=== PATIENT | female | born 1950 | race Caucasian/White ===

== ENCOUNTER 2018-04-30 11:50 | Inpatient (IN) | payer MEDICARE, OTHER ==
--- NOTE | 2018-04-26 13:41 | HP ---
AMENDED REPORT NOW INCLUDES DESIGNATED COSIGNER HISTORY AND PHYSICAL: DATE OF SURGERY: 04/30/18 ATTENDING SURGEON: Dr. Ruano * (DICTATED BY FABIO EDWARD) PROCEDURE: Left total hip arthroplasty. DATE OF OFFICE VISIT: 04/26/18 CHIEF COMPLAINT: Left hip pain. HISTORY OF PRESENT ILLNESS: Ms. Calixto is a 68-year-old female with end-stage osteoarthritis of her left hip. She has failed conservative treatment and elected to proceed with a left total hip arthroplasty, which is scheduled for with Dr. Ruano. PAST MEDICAL HISTORY: 1. Hyperlipidemia. 2. Depression. 3. Rheumatoid fever as a child. PAST SURGICAL HISTORY: Appendectomy. CURRENT MEDICATIONS: 1. Valacyclovir 1 g as needed. 2. Fluoxetine 20 mg daily. 3. Melatonin. 4. L-lysine. 5. Cinnamon. 6. Multivitamin. 7. Calcium. 8. Aleve. 9. Vitamin D3. 10. Aspirin 81 mg. ALLERGIES: BACTRIM. FAMILY HISTORY: Diabetes and coronary artery disease. SOCIAL HISTORY: She is a 68-year-old female. She lives with her . She does not smoke or use drugs. She uses occasional alcohol. REVIEW OF SYSTEMS: A complete 14-point review of systems was reviewed with the patient, it was all negative and noncontributory. She denies history of DVT, PE , hepatitis, HIV or anesthesia problems. PHYSICAL EXAMINATION GENERAL: She is well developed, well nourished, in no acute distress. VITAL SIGNS: She stands 65 inches tall, weighs 150 pounds. Her blood pressure is 138/68, her heart rate is 74. HEENT: Normocephalic, atraumatic. NECK: Supple. No palpable lymph nodes. PULMONARY: Lungs are clear to auscultation bilaterally. CARDIO: Regular rate and rhythm. Strong S1, S2. ABDOMEN: Soft, nontender, nondistended. NEUROLOGICAL: She is alert and oriented x3. MUSCULOSKELETAL: Left lower extremity: The skin is intact. There are no open wounds or abrasions. She walks with an antalgic type gait favoring her left hip. She has decreased internal and external rotation of the left hip. She has 2+ dorsalis pedis pulse and intact sensation. Her lower extremity muscle group strengths are intact at 5/5. ASSESSMENT AND PLAN: Ms. Calixto is a 68-year-old female with end-stage osteoarthritis of the left hip. She has failed conservative treatment and elected to proceed with a left total hip arthroplasty, which is scheduled for with Dr. Ruano. Dr. Ruano discussed the risks and benefits of the surgery at today's visit and all of her questions were answered. She will follow up with Dr. Ruano two weeks after the surgery. FABIO EDWARD [id number]/[facility] #: [id number] MTDD
[~2018-04-30 11:50] MED LIST: Buffered Lidocaine 0.9% SYRIN* 5 ML/SYR SYRINGE INTRADERM ONE; Famotidine IV* 10 MG/ML 2 ML (20 mg) IV ONE
[2018-04-30] MEDS ORDERED: Midazolam* 1 MG/ML 5 ML VIAL (5 MG) ONE (12:16)
[2018-04-30] MEDS ORDERED: fentaNYL* 50 MCG/ML 2 ML VIAL (100 MCG VIAL) ONE (12:16)
[2018-04-30] MEDS ORDERED: Famotidine IV* 10 MG/ML 2 ML (20 mg) ONE (12:30)
[2018-04-30] MEDS ORDERED: ceFAZolin 2 GM PREMIX in ORs 2 GM/50 ML BAG IVPB ONE (12:30)
[2018-04-30] MEDS ORDERED: KETAMINE HCL* 50 MG/ML 10 ML VIAL ONE (14:20)
[2018-04-30] MEDS ORDERED: oxyCODONE TAB* 5 MG TAB PO PRN ×2 (14:52→16:07)
[2018-04-30] MEDS ORDERED: Naloxone* 0.4 MG/ML 1 ML VIAL IV PRN (14:52)
[2018-04-30] MEDS ORDERED: HYDROmorphone INJ1* 1 MG/ML SYRINGE IV PRN (14:52)
[2018-04-30] MEDS ORDERED: DiMENhydriNATE IV* 50 MG/ML VIAL IV PUSH PRN (14:52)
[2018-04-30] MEDS ORDERED: Acetaminophen TAB* 325 MG PO PRN ×2 (14:52→16:07)
[2018-04-30] MEDS ORDERED: Gabapentin CAP(*) 100 MG PO ONE (14:54)
[2018-04-30] MEDS ORDERED: Bupivacaine-MPF SPINAL* 7.5 MG/ML - 2ML AMP ONE (15:08)
[2018-04-30] MEDS ORDERED: DiMENhydriNATE IV* 50 MG/ML VIAL ONE (15:08)
[2018-04-30] MEDS ORDERED: Propofol* 10 MG/ML 20 ML BTL IV PUSH ONE (15:08)
[2018-04-30] MEDS ORDERED: Ondansetron INJ* 2 MG/ML VIAL ONE (15:08)
[2018-04-30] MEDS ORDERED: Ketorolac INJ* 30 MG/ML 1 ML VIAL ONE (15:08)
[2018-04-30] MEDS ORDERED: Dexamethasone IV* 4 MG/ML 1 ML (4 MG) ONE (15:08)
[2018-04-30] MEDS ORDERED: Lidocaine 2% PF * 5 ML VIAL ONE (15:08)
[2018-04-30] MEDS ORDERED: Ondansetron INJ* 2 MG/ML VIAL IV PRN (16:07)
[2018-04-30] MEDS ORDERED: Bisacodyl SUPP* 10 MG SUPP PR PRN (16:07)
[2018-04-30] MEDS ORDERED: diPHENhydraMINE IV* 50 MG/ML 1 ml VIAL (BENADRYL) IV PRN (16:07)
[2018-04-30] MEDS ORDERED: Morphine INJ* 4 MG/ML 1 ML SYRINGE (NEW SYRINGE VERSION) IV PRN (16:07)
[2018-04-30] MEDS ORDERED: Cyclobenzaprine TAB* 10 MG PO PRN (16:07)
[2018-04-30] MEDS ORDERED: Polyethylene Glycol 3350* 17 GM PACKET PO PRN (16:07)
[2018-04-30] MEDS ORDERED: Magnesium Hydroxide LIQ* 30 ML UDC PO PRN (16:07)
--- NOTE | 2018-04-30 16:07 | RAD ---
HISTORY: LEFT TOTAL HIP REPLACEMENT COMPARISONS: April 01, 2018 VIEWS: 1 , single frontal portable intraoperative view of the pelvis during hip arthroplasty FINDINGS: Limited single frontal portable view of the pelvis to hip arthroplasty, at 3:31 PM, demonstrates a left hip arthroplasty with a temporary femoral sizing component. IMPRESSION: LIMITED PORTABLE INTRAOPERATIVE VIEW OF THE HIP DURING ARTHROPLASTY.
[2018-04-30] MEDS ORDERED: Gabapentin CAP(*) 100 MG ONE (16:32)
--- NOTE | 2018-04-30 17:15 | RAD ---
HISTORY: S/p LTHA COMPARISONS: July 01, 2018 VIEWS: 3 , Frontal view of the pelvis with frontal and crosstable lateral views of the left hip FINDINGS: BONE DENSITY: Normal. BONES: The patient is status post left hip arthroplasty. There is no hardware failure or osteolysis. JOINTS: The patient is status post left hip arthroplasty. ALIGNMENT: There is no dislocation. SOFT TISSUES: Unremarkable. OTHER FINDINGS: Degenerative changes are noted of the spine. IMPRESSION: STATUS POST LEFT HIP ARTHROPLASTY
[2018-04-30] MEDS: oxyCODONE/Acetamin 5/325 MG* TAB PO PRN ×2 (18:30→23:11)
[2018-04-30] MEDS ORDERED: Warfarin TAB(*) 6 MG PO ONE (18:30)
[2018-04-30] MEDS: Docusate CAP* 100 MG PO SCH (20:39)
[2018-04-30] MEDS: Magnesium Hydroxide LIQ* 30 ML UDC PO SCH (20:41)
[2018-04-30] MEDS: ceFAZolin 1 GM ADVAN(*) 1 GM in NS 0.9% 50 ML* 50 ML IVPB SCH (23:15)
[2018-05-01] MEDS: oxyCODONE/Acetamin 5/325 MG* TAB PO PRN ×5 (03:53→22:19)
[2018-05-01] MEDS: ceFAZolin 1 GM ADVAN(*) 1 GM in NS 0.9% 50 ML* 50 ML IVPB SCH ×2 (05:29→14:09)
[2018-05-01 06:19] LABS: Hematocrit 28 % (35-47); Hemoglobin 9.4 g/dl (12.0-16.0); Mean Platelet Volume 7.9 um3 (7.4-10.4); Platelet Count 196 10^3/ul (150-450)
[2018-05-01 06:27] LABS: INR 1.05 (0.77-1.02)
[2018-05-01 06:41] LABS: EGFR Non-African American 66.5 (>60)
[2018-05-01] MEDS: Docusate CAP* 100 MG PO SCH ×2 (08:03→22:20)
[2018-05-01] MEDS: Magnesium Hydroxide LIQ* 30 ML UDC PO SCH ×2 (08:03→22:21)
--- NOTE | 2018-05-01 10:56 | PN ---
Progress Note - Progress Note Date of Service: 05/01/18 SOAP: Subjective: POD #1 Left TRACI, doing well. Feels "weak" with walking but pain controlled. Denies CP/SOB, f/c, n/v or calf pain Objective: Vitals: Temp Pulse Resp BP Pulse Ox 97.9 F 65 20 116/49 98 05/01/18 07:25 05/01/18 07:25 05/01/18 10:44 05/01/18 07:25 05/01/18 08:00 Gen: A&Ox3, NAD at rest sitting in chair Left hip: Dressing C/D/I. + f/e at knee, ankles and MTPs. Sensation to light touch intact. DP 2+ Labs: Laboratory Results - last 24 hr 05/01/18 05/01/18 05/01/18 05:45 05:45 05:45 Hgb 9.4 L Hct 28 L Plt Count 196 MPV 7.9 INR (Anticoag Therapy) 1.05 H Sodium 136 Potassium 4.6 Chloride 103 Carbon Dioxide 28 Anion Gap 5 BUN 21 Creatinine 0.85 Est GFR ( Amer) 80.5 Est GFR (Non-Af Amer) 66.5 BUN/Creatinine Ratio 24.7 H Glucose 121 H Calcium 8.1 L Assessment: POD #1 Left TRACI Plan: INR 1.05 today, Coumadin 6mg tonight Cont PT/OT Possible d/c tomorrow
--- NOTE | 2018-05-01 10:59 | OP ---
DATE OF OPERATION: 04/30/18 - ROOM #347 DATE OF : 50 SURGEON: Shayla Ruano MD ROOFER VINYL COATING: FABOI Maria. Kwesi Kirt did help throughout the procedure with preparation of the leg, wound retraction, manipulation of the hip, and wound closure. ANESTHESIOLOGIST: Dr. Torres. ANESTHESIA: Spinal. PRE-OP DIAGNOSIS: Severe end-stage degenerative osteoarthritis of the left hip joint. POST-OP DIAGNOSIS: Severe end-stage degenerative osteoarthritis of the left hip joint. OPERATIVE PROCEDURE: Left total hip arthroplasty. COMPLICATIONS: None. ESTIMATED BLOOD LOSS: 250 cc. SPECIMENS: Femoral head and acetabular reaming sent to pathology. HARDWARE USED: This is Carroll uncemented total hip arthroplasty hardware. For the cup, a 50D cluster hole Tritanium acetabular cup, 120 mm screw. For the liner, a Trident X3 0-degree polyethylene liner 32D. For the stem, an Accolade 2 size 2 with a 127-degree neck. For the head, a Biolox delta ceramic V40 femoral neck 32 +0. BRIEF HISTORY/INDICATIONS: Ms. Calixto is a 68-year-old female with years of increasingly severe left hip pain. She failed conservative treatment with antiinflammatories, pain medication, physical therapy, and injections. Due to continued pain and decreased quality of life, she elected to undergo a left total hip arthroplasty. Radiographs showed [id number] arthritis. Informed consent was obtained from the patient. She understood the risks of surgery included, but were not limited to bleeding, infection, damage to nearby structures, continued pain, need for further surgery, intra-operative fracture, nerve palsy, hardware failure or loosening, dislocation, leg length discrepancy , stroke, heart attack, blood clot, and . She wished to proceed. INTRAOPERATIVE FINDINGS: Intraoperatively, the patient was noted to have severe end-stage arthritis with complete loss of cartilage along the femoral head and acetabulum. There was extensive osteophyte formation along the acetabulum. DESCRIPTION OF PROCEDURE: Ms. Calixto was identified in the preanesthesia unit. Her left lower extremity was marked as the correct operative site. Informed consent was signed and placed in the chart. The patient was taken to the operating room and placed under spinal anesthesia. A Wetzel catheter was placed. The patient was placed in the right lateral decubitus position on the peg board. All bony prominences were well padded. Left lower extremity was prepped and draped in the usual sterile fashion. Preoperative time-out was made to correctly identify the patient, side and site. Appropriate perioperative antibiotics were given within 1 hour of incision. A 12-cm posterior hip incision was made and carried down to the lateral fascia layer. Lateral fascia layer was incised in line with the skin incision. Charnley retractor was placed. The piriformis and conjoint tendons were identified along the posterolateral femur and elevated with electrocautery. These were tagged with #5 Ethibond. Next, electrocautery was used to make a posterolateral capsular flap and this was also tagged with #5 Ethibond. The hip was carefully dislocated. Lesser troch to the center of the femoral head measured 50 mm. Oscillating saw was used to make the appropriate femoral neck cut. The femoral head was removed. The femur was carefully retracted anteriorly. After appropriate placement of retractors, the acetabulum was well visualized. Long-handled knife was used to sharply remove any labrum from the acetabular rim. The acetabulum was sequentially reamed up to a size 49. The 49 reamer obtained a bleeding subchondral bone bed. The 49 trial had excellent fit with appropriate anteversion and abduction angle. Final implant chosen was a 50D cluster hole Tritanium acetabular cup. This was impacted into the acetabulum without difficulty. The acetabular cup had excellent stability with appropriate anteversion and abduction angle. A 20 mm screw was placed in the superoposterior quadrant for extra stability. A Trident X3 0-degree liner 32D was chosen. This was impacted into the acetabulum without difficulty. Stability of the liner was checked and rechecked and noted to be stable. Attention was next turned to preparation of the proximal femur. A canal finder was used to enter the proximal femur. Proximal femur was sequentially broached up to a size 2. The size 2 broach had good fit and stability with appropriate anteversion. A 127 neck trial and a 32 +0 head trial was chosen. Lesser troch to the center of the femoral head measured 52 mm. The hip was reduced and taken through a range of motion. The hip was stable in all positions. There was good soft tissue tension and appropriate leg lengths. The hip was dislocated and all trials were removed. Final implant chosen was an Accolade II size 2 with a 127-degree neck. This was impacted into the femoral canal without difficulty. The stem was stable with appropriate anteversion. A 32 +0 Biolox delta ceramic V40 femoral head was chosen. This was impacted on to the femoral neck. Lesser troch to the center of the femoral head measurement was 52 mm. The hip was reduced and taken through a range of motion. The hip was stable in all positions. There was good soft tissue tension and appropriate leg lengths. The wound was copiously irrigated with sterile saline. Previously tagged capsule and tendons were reapproximated to the posterolateral femur through 2 trochanteric drill holes. Lateral fascia layer was closed using interrupted #1 Vicryl. The rest of the incision was closed in a layered fashion using 0 and 2-0 Vicryl. Skin was closed using running 3-0 Monocryl and Dermabond. Sterile Adaptic, 4x4's, and paper tape were used to cover the incision. The patients's anesthesia was reversed without difficulty. She was taken to the PACU in stable condition. Intended weightbearing will be weightbearing as tolerated. Intended DVT prophylaxis will be Coumadin with a Lovenox bridge. [id number]/[facility] #: [id number] [facility]
[2018-05-01] MEDS: Enoxaparin(*) 40 MG/0.4 ML SYR SUBCUT SCH (11:50)
[2018-05-01] MEDS ORDERED: Warfarin TAB(*) 6 MG PO SCH (17:00)
[2018-05-02] MEDS: oxyCODONE/Acetamin 5/325 MG* TAB PO PRN ×4 (04:06→16:01)
[2018-05-02 05:36] LABS: Hematocrit 26 % (35-47); Mean Platelet Volume 7.5 um3 (7.4-10.4); Platelet Count 176 10^3/ul (150-450)
[2018-05-02 05:42] LABS: INR 1.52 (0.77-1.02)
[2018-05-02] MEDS: Magnesium Hydroxide LIQ* 30 ML UDC PO SCH (07:09)
[2018-05-02] MEDS: Docusate CAP* 100 MG PO SCH (08:02)
--- NOTE | 2018-05-02 10:27 | PN ---
Progress Note - Progress Note Date of Service: 05/02/18 SOAP: Subjective: []Patient seen and examined at bedside. Patient feels well aside from feeling generalized weakness. Denies CP, SOB, dizziness, nausea. No reported history of blood clot. Objective: []General: Well appearing, NAD LLE: Left hip dressing changed. Incision CDI without erythema or discharge. Thigh is soft, DF/PF intact, Dp2+, sensation intact distally. Calves are supple and nontender without erythema, edema or palpable cords Assessment: []S/P Left TRACI Plan: Lovenox dose before DC. INR 1.52 today, Coumadin 6mg tonight Cont PT/OT WBAT DC to home today Vital Signs Temp 98.6 F 05/02/18 07:45 Pulse 96 05/02/18 08:00 Resp 18 05/02/18 10:08 BP 125/50 05/02/18 08:00 Pulse Ox 96 05/02/18 08:00 Intake & Output 05/01/18 05/02/18 05/02/18 18:59 06:59 18:59 Intake Total 1586 445 240 Output Total 1050 1750 150 Balance 536 -1305 90 Intake: IV Fluids 816 ABX - CEFAZOLIN 55 LR 761 Oral 770 445 240 Output: Urine 1050 1750 150 Other: # Bowel Movements 1 Estimated Stool Amount Medium Laboratory Last Values Hgb 9.0 g/dl (12.0-16.0) L 05/02/18 05:17 Hct 26 % (35-47) L 05/02/18 05:17 Plt Count 176 10^3/ul (150-450) 05/02/18 05:17 MPV 7.5 um3 (7.4-10.4) 05/02/18 05:17 INR (Anticoag Therapy) 1.52 (0.77-1.02) H 05/02/18 05:17 Sodium 136 mmol/L (135-145) 05/01/18 05:45 Potassium 4.6 mmol/L (3.5-5.0) 05/01/18 05:45 Chloride 103 mmol/L (101-111) 05/01/18 05:45 Carbon Dioxide 28 mmol/L (22-32) 05/01/18 05:45 Anion Gap 5 mmol/L (2-11) 05/01/18 05:45 BUN 21 mg/dL (6-24) 05/01/18 05:45 Creatinine 0.85 mg/dL (0.51-0.95) 05/01/18 05:45 Est GFR ( Amer) 80.5 (>60) 05/01/18 05:45 Est GFR (Non-Af Amer) 66.5 (>60) 05/01/18 05:45 BUN/Creatinine Ratio 24.7 (8-20) H 05/01/18 05:45 Glucose 121 mg/dL (70-100) H 05/01/18 05:45 Calcium 8.1 mg/dL (8.6-10.3) L 05/01/18 05:45
[2018-05-02] MEDS: Enoxaparin(*) 40 MG/0.4 ML SYR SUBCUT SCH (12:07)
[2018-05-02 12:22] VITALS: BP 116/43
--- NOTE | 2018-05-03 06:17 | DS ---
AMENDED REPORT NOW INCLUDES DESIGNATED COSIGNER DISCHARGE SUMMARY: DATE OF ADMISSION: 04/30/18 DATE OF DISCHARGE: 05/02/18 PROVIDER: Dr. Shayla Ruano.* (DICTATED BY FABIO PINEDA) FRONT MAKER: FABIO Maria PRE-OP DIAGNOSIS: Severe end-stage degenerative osteoarthritis of the left hip joint. OPERATIVE PROCEDURE: Left total hip arthroplasty. HISTORY: Ms. Calixto is a 68-year-old female with years of increasingly severe left hip pain. She failed conservative management and elected to undergo a left total hip arthroplasty. HOSPITAL COURSE: The patient was admitted to [facility] on . She underwent a left total hip arthroplasty without complications. Postop day 1, she was feeling weak, but walking with controlled pain. Dressing clean, dry, and intact. Flexion and extension of knee, ankle, and MTPs intact. Sensation intact to light touch. 2+ dorsalis pedis pulse. Postop day 2, she is well appearing, in no acute distress. Continuing to feel weak, though improved from yesterday. Left hip dressing changed. Incision clean, dry, intact without erythema or discharge. Thigh was soft. Dorsiflexion and plantarflexion intact. DP 2+. Sensation intact distally. Vitals on day of discharge: Temperature 98.6, pulse 96, respiratory rate 18, blood pressure 125/ 50, pulse ox 96. Hemoglobin 9.3, hematocrit 26. INR 1.52. DISCHARGE MEDICATIONS: New medications for discharge: 1. Acetaminophen 650 mg p.o. q.8 hours p.r.n. 2. Docusate 100 mg p.o. b.i.d. p.r.n. 3. Percocet 5/325, 1 to 2 tabs every 4 to 6 hours as needed for pain, max daily dose of 10. 4. Warfarin 2 mg tabs 1 to 3 tabs daily, dose depends on INR. Medications to be resumed at home: 1. Aspirin 81 mg p.o. q.p.m. 2. Calcium 1 tab p.o. q.a.m. 3. Multivitamin 1 tab p.o. q.a.m. 4. Melatonin 500 mcg p.o. at bedtime. 5. Valacyclovir 1 tab p.o. once p.r.n. 6. Vitamin D3 1000 units p.o. q.p.m. 7. L-lysine 500 mg p.o. b.i.d. 8. Fluoxetine 20 mg p.o. q.a.m. Please discontinue naproxen and ibuprofen at home. DISCHARGE PLAN: The patient will be weightbearing as tolerated. She will be discharged to home. She will continue hip precautions. Home nurse to do wound checks and INRs. Coumadin dosin05/02/18, 6 mg; 05/03/18 to 05/05/18, take 4 mg each day; 05/04/18, recheck INR for further dosing instructions. Pain control, Percocet 5/325, 1 to 2 tabs by mouth every 4 to 6 hours as needed for pain, max 10 tabs per day. Follow up with Dr. Ruano in 10 to 14 days. FABIO PINEDA [id number]/[facility] #: [id number] [facility]
== END 2018-05-02 16:20 | disposition home health service (06) | DRG 470 ==
LOC: AA 11:50 → SSU 16:07
PROVIDERS: ADMIT Orthopaedic Surgery Adult Reconstructive Orthopaedic Surgery; ATTEND Orthopaedic Surgery Adult Reconstructive Orthopaedic Surgery
PROC: 0SRB04A Replacement of Left Hip Joint with Ceramic on Polyethylene Synthetic Substitute, Uncemented, Open Approach (ICD-10-PCS; principal; 2018-04-30 14:00)
DX: M16.12 Unilateral primary osteoarthritis, left hip (principal); F33.0 Major depressive disorder, recurrent, mild; F42.9 Obsessive-compulsive disorder, unspecified; M79.7 Fibromyalgia; M25.752 Osteophyte, left hip; F41.9 Anxiety disorder, unspecified; E78.5 Hyperlipidemia, unspecified; K21.9 Gastro-esophageal reflux disease without esophagitis; Z79.01 Long term (current) use of anticoagulants; Z79.82 Long term (current) use of aspirin; Z90.89 Acquired absence of other organs; Z88.1 Allergy status to other antibiotic agents; Z72.89 Other problems related to lifestyle; Z87.891 Personal history of nicotine dependence; Z81.1 Family history of alcohol abuse and dependence; Z83.3 Family history of diabetes mellitus; Z80.9 Family history of malignant neoplasm, unspecified; Z81.8 Family history of other mental and behavioral disorders; Z82.49 Family history of ischemic heart disease and other diseases of the circulatory system
CPT/HCPCS: 36415; 72170; 80048; 85014; 85018; 85049; 85610; 88304; 88311; A9270-GY; C1713; C1776; G8978-GP-CJ; G8979-GP-CI; G8987-GO-CI; G8987-GO-CK; G8988-GO-CI; G8989-GO-CI; J0690; J1100; J1240; J1650; J1885; J2250; J2405; J2704; J3010

== ENCOUNTER 2023-02-15 11:04 | Observation (INO) ==
[~2023-02-15 11:04] MED LIST changes: -Buffered Lidocaine 0.9% SYRIN* 5 ML/SYR SYRINGE INTRADERM ONE; +Buffered Lidocaine 1% SYRIN 1 ml INTRADERM ONE; -Famotidine IV* 10 MG/ML 2 ML (20 mg) IV ONE; +Lactated Ringers 1000 ml BAG 1,000 ML IV SCH; +Naloxone 0.4 mg VIAL 0.4 mg/ml 1 ml VIAL IV PRN; +Ondansetron 4 mg VIAL 2 MG/ML 2 ml VIAL IV PRN; +fentaNYL 100 mcg/2 ml 50 MCG/ML VIAL IV PRN; +oxyCODONE/Acetamin 5/325 mg TAB PO PRN
[2023-02-15] MEDS ORDERED: Lidocaine 2% PF 5 ML VIAL ONE (11:08)
[2023-02-15] MEDS ORDERED: Ondansetron 4 mg VIAL 2 MG/ML 2 ml VIAL ONE (11:08)
[2023-02-15] MEDS ORDERED: Propofol 10 MG/ML 20 ML BTL ONE ×2 (11:08→15:29)
[2023-02-15] MEDS ORDERED: Midazolam 2 mg/2 ml VIAL 1 mg/ml 2 ml VIAL (2 mg) ONE (11:08)
[2023-02-15] MEDS ORDERED: ceFAZolin 2 GM in NS PREMIX 2 GM/100 ML BAG IVPB ONE (12:01)
[2023-02-15] MEDS ORDERED: fentaNYL 100 mcg/2 ml 50 MCG/ML VIAL ONE (12:31)
[2023-02-15] MEDS ORDERED: Acetaminophen IV 1 GM/100ML 1,000 MG/100 ML BAG IV ONE (12:45)
[2023-02-15 12:49] LABS: Rapid COVID-19 Molecular Undetected (Undetected)
[2023-02-15] MEDS ORDERED: ROPIVACAINE 5 MG/ML 30 ML BTL (0.5%) ONE ×2 (13:12→13:37)
[2023-02-15] MEDS ORDERED: Dexmedetomidine 200 mcg/2 ml 2 ml VIAL (200 mcg) ONE (13:48)
[2023-02-15] MEDS ORDERED: Dexamethasone IV 4 MG/ML VIAL 1 ml VIAL ONE (14:08)
[2023-02-15] MEDS ORDERED: Ondansetron 4 mg VIAL 2 MG/ML 2 ml VIAL IV PRN (16:01)
[2023-02-15] MEDS ORDERED: Ondansetron ODT 4 mg TAB 4 MG TAB PO PRN (16:01)
[2023-02-15] MEDS ORDERED: Morphine 2 MG/ML SYRINGE IV PRN (16:01)
[2023-02-15] MEDS ORDERED: Lactulose 30 ml UDC PO PRN (16:01)
[2023-02-15] MEDS ORDERED: Magnesium Hydroxide LIQ 30 ML UDC PO PRN (16:01)
[2023-02-15] MEDS: Lactated Ringers 1000 ml BAG 1,000 ML IV SCH (18:24)
[2023-02-15] MEDS: ceFAZolin 1 GM ADVAN 1 GM in NS 0.9% 50 ML 50 ML IVPB SCH (21:34)
[2023-02-15] MEDS: Magnesium Hydroxide LIQ 30 ML UDC PO SCH (22:04)
[2023-02-16] MEDS: Lactated Ringers 1000 ml BAG 1,000 ML IV SCH (04:24)
[2023-02-16 06:09] LABS: Hematocrit 32.4 % (35-45); Hemoglobin 11.1 g/dL (11.5-14.3); Mean Platelet Volume 7.6 fL (7.5-11.2); Platelet Count 329 10^3/uL (150-450)
[2023-02-16] MEDS: ceFAZolin 1 GM ADVAN 1 GM in NS 0.9% 50 ML 50 ML IVPB SCH ×2 (06:29→13:24)
[2023-02-16 06:33] LABS: Calcium 8.6 mg/dL (8.6-10.3); Creatinine, Serum 0.81 mg/dL (0.51-0.95); Potassium 4.5 mmol/L (3.5-5.0); eGFR CKD-EPI 76.6 (>60)
[2023-02-16] MEDS ORDERED: Vitamin THERAPEUTIC TAB PO SCH (09:00)
[2023-02-16] MEDS: Magnesium Hydroxide LIQ 30 ML UDC PO SCH (09:19)
[2023-02-16 10:11] VITALS: BP 115/63
== END 2023-02-16 14:05 | disposition home or self-care (01) ==
LOC: SSU 11:04 → OR 11:04
PROVIDERS: ADMIT Orthopaedic Surgery Adult Reconstructive Orthopaedic Surgery; ATTEND Orthopaedic Surgery Adult Reconstructive Orthopaedic Surgery